=== PATIENT | female | born 1945 | race Caucasian/White ===

== ENCOUNTER 2020-12-22 18:33 | Inpatient (IN) | payer MEDICARE, OTHER, SELFPAY ==
[~2020-12-22] VITALS: Ht 154.9 cm; Wt 94.8 kg
[2020-12-22 18:44] VITALS: BP 122/91
[2020-12-22 19:45] LABS: BASOPHILS % (AUTO) 0.2 % (0.0-2.0); EOSINOPHILS # (AUTO) 0.1 K/uL (0-0.4); EOSINOPHILS % (AUTO) 0.3 % (0.0-4.0); HEMATOCRIT 37.4 % (36-48); HEMOGLOBIN 11.8 g/dL (12.0-16.0); LYMPHOCYTES # (AUTO) 2.1 K/uL (2.5-16.5); LYMPHOCYTES % (AUTO) 10.5 % (20.5-51.1); MEAN CORPUSCULAR HEMOGLOBIN 26 pg (27-31); MEAN CORPUSCULAR HGB CONC 32 g/dL (33-37); MEAN CORPUSCULAR VOLUME 83.1 fL (80-94); MONOCYTES # (AUTO) 1.7 K/uL (0.8-1.0); MONOCYTES % (AUTO) 8.3 % (1.7-9.3); NEUTROPHILS # (AUTO) 16.1 K/uL (1.8-7.7); NEUTROPHILS % (AUTO) 80.7 % (42.2-75.2); PLATELET COUNT (AUTO) 294 K/uL (140-450); RED CELL DISTRIBUTION WIDTH 15.8 % (11.6-13.7); WHITE BLOOD COUNT (AUTO) 19.9 K/uL (4.8-10.8)
[2020-12-22 19:59] LABS: APPEARANCE,URINE CLEAR (CLEAR); BILIRUBIN,URINE 1+ (NEGATIVE); BLOOD, URINE 2+ (NEGATIVE); COLOR,URINE DARK YELLOW (YELLOW); LEUKOCYTE ESTERASE ,URINE NEGATIVE (NEGATIVE); NITRITE, URINE NEGATIVE (NEGATIVE); PH,URINE 6.5 (5.0-9.0); UGLUCOSE NEGATIVE (NEGATIVE)
[2020-12-22 20:16] LABS: RBC,URINE 11-20 (MOD) /HPF (0-5)
[2020-12-22 20:17] LABS: WBC,URINE 0-5 /HPF (0-5)
[2020-12-22 20:25] LABS: ALBUMIN 2.7 g/dL (3.4-5.0); ANION GAP 15.9 (8-16); ASPARTATE AMINOTRANSFERASE 46 U/L (15-37); CARBON DIOXIDE 22.7 mmol/L (21-32); CHLORIDE 98 mmol/L (98-107); GLUCOSE 135 mg/dL (74-106); LIPASE 108 U/L (73-393); POTASSIUM 3.6 mmol/L (3.5-5.1); SODIUM SERUM 133 mmol/L (136-145); TOTAL BILIRUBIN 0.6 mg/dL (0.0-1.0); UREA NITROGEN, BLOOD 18 mg/dL (7-18)
[2020-12-22] MEDS ORDERED: MORPHINE SULFATE 4 MG/ML SYR IVP ONE (20:50)
[2020-12-22] MEDS ORDERED: ONDANSETRON 4 MG/2 ML VIAL IVP ONE (21:00)
[2020-12-22] MEDS ORDERED: PIPERACILLIN/TAZOBACTAM 3.375 GM in DEXTROSE 5% 50 ML IV ONE (22:05)
[2020-12-22] MEDS ORDERED: PIPERACILLIN/TAZOBACTAM 3.375 GM VIAL IV ONE (22:10)
[2020-12-23] MEDS ORDERED: NACL 0.9% 2,000 ML IV ONE (00:15)
[2020-12-23] MEDS ORDERED: LOSA100T1 PO (01:37)
[2020-12-23] MEDS ORDERED: ONDA4TAB PO (01:37)
[2020-12-23] MEDS ORDERED: HYDR-4004 PO (01:37)
[2020-12-23] MEDS ORDERED: ROSU10TA1 PO (01:37)
[2020-12-23] MEDS ORDERED: OMEP20EC11 PO (01:37)
[2020-12-23] MEDS ORDERED: CLOP75TA26 PO (01:37)
[2020-12-23] MEDS ORDERED: ACET-5629 PO (01:37)
[2020-12-23] MEDS ORDERED: SENN-73 PO (01:37)
[2020-12-23] MEDS ORDERED: ASPI-1822 PO (01:37)
[2020-12-23] MEDS ORDERED: DEXT 5% / NACL 0.45% 1,000 ML IV SCH (01:50)
[2020-12-23] MEDS ORDERED: ONDANSETRON 4 MG/2 ML VIAL IVP PRN ×2 (01:50→08:10)
[2020-12-23] MEDS ORDERED: MORPHINE SULFATE 2 MG/ML SYR IVP PRN (01:50)
[2020-12-23 04:00] VITALS: BP 134/78
[2020-12-23] MEDS ORDERED: NACL 0.9% IV SCH (05:00)
[2020-12-23] MEDS ORDERED: SULBACTAM IV SCH (05:00)
[2020-12-23] MEDS ORDERED: AMPICILLIN IV SCH (05:00)
[2020-12-23 08:00] VITALS: BP 114/61
[2020-12-23] MEDS ORDERED: DOCUSATE SODIUM 100 MG GELCAP PO PRN (08:10)
[2020-12-23] MEDS ORDERED: LORazepam 2 MG/ML VIAL IM/IVP PRN (08:10)
[2020-12-23] MEDS ORDERED: ZOLPIDEM 5 MG TAB PO PRN (08:10)
[2020-12-23] MEDS ORDERED: MAG SULF 2000 MG/WATER PREMIX 50 ML IV PRN (08:10)
[2020-12-23] MEDS ORDERED: SODIUM PHOS / POTASSIUM PHOS 1 PKT PDR PO PRN (08:10)
[2020-12-23] MEDS ORDERED: POTASSIUM CHLORIDE 10 MEQ TABER PO PRN (08:10)
[2020-12-23] MEDS ORDERED: HYDROcodone/APAP 5/325 MG 1 TAB TAB PO PRN (08:10)
[2020-12-23] MEDS: NACL 0.9% 1,000 ML IV SCH ×2 (08:10→18:10)
[2020-12-23] MEDS ORDERED: ACETAMINOPHEN 325 MG TAB PO PRN (08:10)
[2020-12-23 09:13] LABS: PROTHROMBIN TIME 10.7 secs (10.8-13.4)
[2020-12-23 09:38] LABS: CHOL/HDL RATIO 2.5 (1-4.5); FREE T4 (FREE THYROXINE) 1.3 ng/dL (0.76-1.46); THYROID STIMULATING HORMONE 1.14 uIU/mL (0.34-3.74)
[2020-12-23] MEDS: PIPERACILLIN/TAZOBACTAM 3.375 GM in DEXTROSE 5% 50 ML IV SCH ×2 (12:34→20:41)
[2020-12-23] MEDS ORDERED: metroNIDAZOLE 500 MG TAB PO SCH (13:00)
[2020-12-23] MEDS ORDERED: fentaNYL citrate 0.05 MG/ML VIAL ONE (14:07)
[2020-12-23] MEDS ORDERED: PROPOFOL 200 MG/20 ML VIAL IV ONE (14:08)
[2020-12-23] MEDS ORDERED: SUCCINYLCHOLINE CHLORIDE 200 MG/10 ML VIAL IVP ONE (14:08)
[2020-12-23 15:31] VITALS: BP 126/84
[2020-12-23] MEDS: MORPHINE SULFATE 2 MG/ML SYR IVP PRN ×2 (15:36→18:51)
[2020-12-23 20:00] VITALS: BP 122/78
[2020-12-24 04:00] VITALS: BP 124/73
[2020-12-24] MEDS: PIPERACILLIN/TAZOBACTAM 3.375 GM in DEXTROSE 5% 50 ML IV SCH ×3 (05:01→21:02)
[2020-12-24] MEDS: NACL 0.9% 1,000 ML IV SCH ×2 (05:02→14:10)
[2020-12-24 06:48] LABS: BASOPHILS % (AUTO) 0.2 % (0.0-2.0); EOSINOPHILS # (AUTO) 0.1 K/uL (0-0.4); EOSINOPHILS % (AUTO) 0.5 % (0.0-4.0); HEMATOCRIT 33.2 % (36-48); HEMOGLOBIN 10.5 g/dL (12.0-16.0); LYMPHOCYTES # (AUTO) 1.2 K/uL (2.5-16.5); LYMPHOCYTES % (AUTO) 8.6 % (20.5-51.1); MEAN CORPUSCULAR HEMOGLOBIN 26 pg (27-31); MEAN CORPUSCULAR HGB CONC 32 g/dL (33-37); MEAN CORPUSCULAR VOLUME 82.3 fL (80-94); MONOCYTES # (AUTO) 0.7 K/uL (0.8-1.0); MONOCYTES % (AUTO) 5.4 % (1.7-9.3); NEUTROPHILS # (AUTO) 11.5 K/uL (1.8-7.7); NEUTROPHILS % (AUTO) 85.3 % (42.2-75.2); PLATELET COUNT (AUTO) 272 K/uL (140-450); RED BLOOD CELL COUNT(AUTO) 4.03 MIL/uL (4.20-5.40); RED CELL DISTRIBUTION WIDTH 15.5 % (11.6-13.7); WHITE BLOOD COUNT (AUTO) 13.5 K/uL (4.8-10.8)
[2020-12-24 07:00] LABS: ALBUMIN 2.1 g/dL (3.4-5.0); ANION GAP 12.3 (8-16); ASPARTATE AMINOTRANSFERASE 129 U/L (15-37); CARBON DIOXIDE 24.5 mmol/L (21-32); CHLORIDE 104 mmol/L (98-107); CREATININE 0.9 mg/dL (0.6-1.3); GLUCOSE 143 mg/dL (74-106); POTASSIUM 3.8 mmol/L (3.5-5.1); SODIUM SERUM 137 mmol/L (136-145); TOTAL BILIRUBIN 0.8 mg/dL (0.0-1.0); UREA NITROGEN, BLOOD 18 mg/dL (7-18)
[2020-12-24 10:00] VITALS: BP 123/71
[2020-12-24 16:00] VITALS: BP 130/82
[2020-12-24] MEDS: MORPHINE SULFATE 2 MG/ML SYR IVP PRN (18:25)
[2020-12-24 20:00] VITALS: BP 130/82
[2020-12-25] MEDS: MORPHINE SULFATE 2 MG/ML SYR IVP PRN (01:10)
[2020-12-25] MEDS: NACL 0.9% 1,000 ML IV SCH ×3 (01:17→20:10)
[2020-12-25 04:00] VITALS: BP 136/81
[2020-12-25] MEDS: PIPERACILLIN/TAZOBACTAM 3.375 GM in DEXTROSE 5% 50 ML IV SCH ×3 (05:08→20:47)
[2020-12-25 08:00] VITALS: BP 126/71
[2020-12-25 11:44] LABS: BASOPHILS % (AUTO) 0.4 % (0.0-2.0); EOSINOPHILS # (AUTO) 0.2 K/uL (0-0.4); EOSINOPHILS % (AUTO) 2.1 % (0.0-4.0); HEMATOCRIT 30.7 % (36-48); HEMOGLOBIN 9.9 g/dL (12.0-16.0); LYMPHOCYTES # (AUTO) 1.4 K/uL (2.5-16.5); LYMPHOCYTES % (AUTO) 13.3 % (20.5-51.1); MEAN CORPUSCULAR HEMOGLOBIN 27 pg (27-31); MEAN CORPUSCULAR HGB CONC 32 g/dL (33-37); MEAN CORPUSCULAR VOLUME 81.8 fL (80-94); MONOCYTES # (AUTO) 0.7 K/uL (0.8-1.0); MONOCYTES % (AUTO) 6.8 % (1.7-9.3); NEUTROPHILS # (AUTO) 8.4 K/uL (1.8-7.7); NEUTROPHILS % (AUTO) 77.4 % (42.2-75.2); PLATELET COUNT (AUTO) 285 K/uL (140-450); RED BLOOD CELL COUNT(AUTO) 3.75 MIL/uL (4.20-5.40); RED CELL DISTRIBUTION WIDTH 15.7 % (11.6-13.7); WHITE BLOOD COUNT (AUTO) 10.9 K/uL (4.8-10.8)
[2020-12-25 11:47] LABS: ANION GAP 12.2 (8-16); CARBON DIOXIDE 22.8 mmol/L (21-32); CHLORIDE 109 mmol/L (98-107); CREATININE 0.7 mg/dL (0.6-1.3); GLUCOSE 138 mg/dL (74-106); SODIUM SERUM 140 mmol/L (136-145); UREA NITROGEN, BLOOD 19 mg/dL (7-18)
[2020-12-25] MEDS: [UNRECOGNIZED DRUG - OTHER] OP SCH ×2 (12:20→16:19)
[2020-12-25] MEDS: POLYMYXIN OP SCH ×2 (12:20→16:19)
[2020-12-25] MEDS: NEOMYCIN OP SCH ×2 (12:20→16:19)
[2020-12-25 16:00] VITALS: BP 130/66
[2020-12-26] MEDS: NACL 0.9% 1,000 ML IV SCH ×2 (03:38→17:23)
[2020-12-26 04:00] VITALS: BP 145/76
[2020-12-26] MEDS: PIPERACILLIN/TAZOBACTAM 3.375 GM in DEXTROSE 5% 50 ML IV SCH ×3 (04:49→22:35)
[2020-12-26 06:50] LABS: ANION GAP 12.8 (8-16); CARBON DIOXIDE 23.2 mmol/L (21-32); CHLORIDE 105 mmol/L (98-107); CREATININE 0.7 mg/dL (0.6-1.3); GLUCOSE 111 mg/dL (74-106); SODIUM SERUM 137 mmol/L (136-145); UREA NITROGEN, BLOOD 12 mg/dL (7-18)
[2020-12-26 07:10] LABS: BASOPHILS % (AUTO) 0.5 % (0.0-2.0); EOSINOPHILS # (AUTO) 0.3 K/uL (0-0.4); EOSINOPHILS % (AUTO) 3.1 % (0.0-4.0); HEMATOCRIT 30.3 % (36-48); HEMOGLOBIN 10.1 g/dL (12.0-16.0); LYMPHOCYTES # (AUTO) 1.6 K/uL (2.5-16.5); LYMPHOCYTES % (AUTO) 18.9 % (20.5-51.1); MEAN CORPUSCULAR HEMOGLOBIN 27 pg (27-31); MEAN CORPUSCULAR HGB CONC 33 g/dL (33-37); MONOCYTES # (AUTO) 0.7 K/uL (0.8-1.0); NEUTROPHILS # (AUTO) 5.9 K/uL (1.8-7.7); NEUTROPHILS % (AUTO) 69.5 % (42.2-75.2); PLATELET COUNT (AUTO) 309 K/uL (140-450); RED BLOOD CELL COUNT(AUTO) 3.78 MIL/uL (4.20-5.40); RED CELL DISTRIBUTION WIDTH 15.4 % (11.6-13.7); WHITE BLOOD COUNT (AUTO) 8.5 K/uL (4.8-10.8)
[2020-12-26 08:00] VITALS: BP 140/87
[2020-12-26] MEDS: [UNRECOGNIZED DRUG - OTHER] OP SCH ×3 (09:26→17:17)
[2020-12-26] MEDS: NEOMYCIN OP SCH ×3 (09:26→17:17)
[2020-12-26] MEDS: POLYMYXIN OP SCH ×3 (09:26→17:17)
[2020-12-26] MEDS ORDERED: MAGNESIUM OXIDE 400 MG TAB PO SCH (13:00)
[2020-12-26 20:00] VITALS: BP 141/80
[2020-12-27] MEDS: NACL 0.9% 1,000 ML IV SCH ×2 (03:35→12:10)
[2020-12-27 04:00] VITALS: BP 140/80
[2020-12-27] MEDS: PIPERACILLIN/TAZOBACTAM 3.375 GM in DEXTROSE 5% 50 ML IV SCH ×2 (06:28→13:08)
[2020-12-27 06:30] LABS: BASOPHILS % (AUTO) 0.5 % (0.0-2.0); EOSINOPHILS # (AUTO) 0.2 K/uL (0-0.4); EOSINOPHILS % (AUTO) 2.4 % (0.0-4.0); HEMATOCRIT 32.9 % (36-48); HEMOGLOBIN 10.7 g/dL (12.0-16.0); LYMPHOCYTES # (AUTO) 2.1 K/uL (2.5-16.5); LYMPHOCYTES % (AUTO) 21.8 % (20.5-51.1); MEAN CORPUSCULAR HEMOGLOBIN 26 pg (27-31); MEAN CORPUSCULAR HGB CONC 33 g/dL (33-37); MEAN CORPUSCULAR VOLUME 80.6 fL (80-94); MONOCYTES # (AUTO) 0.7 K/uL (0.8-1.0); MONOCYTES % (AUTO) 7.5 % (1.7-9.3); NEUTROPHILS # (AUTO) 6.6 K/uL (1.8-7.7); NEUTROPHILS % (AUTO) 67.8 % (42.2-75.2); PLATELET COUNT (AUTO) 364 K/uL (140-450); RED BLOOD CELL COUNT(AUTO) 4.08 MIL/uL (4.20-5.40); RED CELL DISTRIBUTION WIDTH 15.4 % (11.6-13.7); WHITE BLOOD COUNT (AUTO) 9.8 K/uL (4.8-10.8)
[2020-12-27 06:35] LABS: ANION GAP 13.6 (8-16); CARBON DIOXIDE 24.4 mmol/L (21-32); CHLORIDE 105 mmol/L (98-107); CREATININE 0.8 mg/dL (0.6-1.3); GLUCOSE 134 mg/dL (74-106); SODIUM SERUM 139 mmol/L (136-145); UREA NITROGEN, BLOOD 11 mg/dL (7-18)
[2020-12-27] MEDS: POLYMYXIN OP SCH ×2 (08:43→13:09)
[2020-12-27] MEDS: NEOMYCIN OP SCH ×2 (08:43→13:09)
[2020-12-27] MEDS: [UNRECOGNIZED DRUG - OTHER] OP SCH ×2 (08:43→13:09)
[2020-12-27] MEDS ORDERED: ACET-5629 PO (08:55)
[2020-12-27] MEDS ORDERED: AMOX-999 PO (08:55)
== END 2020-12-27 14:00 | disposition home or self-care (01) | DRG 871 ==
LOC: MED 18:33 → MMU 12-23 01:46 → MTU 12-23 02:18
PROVIDERS: ADMIT Family Medicine; ATTEND Family Medicine
PROC: 0F9430Z Drainage of Gallbladder with Drainage Device, Percutaneous Approach (ICD-10-PCS; principal; 2020-12-23)
DX: A41.9 Sepsis, unspecified organism (principal); E43 Unspecified severe protein-calorie malnutrition; K81.0 Acute cholecystitis; E87.1 Hypo-osmolality and hyponatremia; I10 Essential (primary) hypertension; E66.01 Morbid (severe) obesity due to excess calories; H10.9 Unspecified conjunctivitis; M19.90 Unspecified osteoarthritis, unspecified site; Z20.822 Contact with and (suspected) exposure to COVID-19; I25.10 Atherosclerotic heart disease of native coronary artery without angina pectoris; K76.0 Fatty (change of) liver, not elsewhere classified; Z86.73 Personal history of transient ischemic attack (TIA), and cerebral infarction without residual deficits; Z79.02 Long term (current) use of antithrombotics/antiplatelets; Z79.82 Long term (current) use of aspirin; Z88.1 Allergy status to other antibiotic agents; Z88.8 Allergy status to other drugs, medicaments and biological substances; Z90.10 Acquired absence of unspecified breast and nipple; Z85.3 Personal history of malignant neoplasm of breast; Z68.39 Body mass index [BMI] 39.0-39.9, adult
CPT/HCPCS: 36415; 71045; 75989; 76705; 77012; 80048; 80053; 81001; 82150; 83036; 83690; 83735; 83880; 84100; 84439; 84443; 84484; 85025; 85610; 85730; 86886; 86900; 86901; 87081; 93005; 93880; 96361; 96375; 99285; C1729; J0295; J0330; J0696; J2001; J2270; J2405; J2543; J2704; J3010; J7060; Q0092